=== PATIENT | male | born 1965 | race Caucasian/White ===

== ENCOUNTER → 2017-12-16 | Outpatient (CLI) | payer OTHER ==
[~2017-12-16] VITALS: Ht 188 cm; Wt 138.6 kg
[~2017-12-16] MED LIST: COZAAR25 MG PO; LO-DOSE ASPIRIN81 M1 PO; PRAVASTATIN SOD20 MG PO
== END | disposition home or self-care (01) ==
LOC: AMB 07:00
DX: Z12.11 Encounter for screening for malignant neoplasm of colon (principal); D13.2 Benign neoplasm of duodenum; D12.3 Benign neoplasm of transverse colon; K62.1 Rectal polyp; K29.70 Gastritis, unspecified, without bleeding; K64.8 Other hemorrhoids; Z86.010 Personal history of colon polyps; K21.9 Gastro-esophageal reflux disease without esophagitis; E78.5 Hyperlipidemia, unspecified; I10 Essential (primary) hypertension; K76.0 Fatty (change of) liver, not elsewhere classified; E66.9 Obesity, unspecified; Z68.39 Body mass index [BMI] 39.0-39.9, adult; Z79.82 Long term (current) use of aspirin; Z87.891 Personal history of nicotine dependence
CPT/HCPCS: 88305; 88342 TC; 93005; J2250